=== PATIENT | female | born 1975 | race Caucasian/White ===

== ENCOUNTER → 2019-08-24 17:00 | Outpatient (CLI) | payer MEDICAID, SELFPAY ==
[2019-08-24 17:53] LABS: International Normalized Ratio 1.9; Prothrombin Time (Protime)PT. 21.9 SECONDS (11.7-14.9)
== END ==
PROVIDERS: PCP Family Medicine; Referring Provider Family Medicine; Visit Provider Family Medicine
DX: I82.4Y9 Acute embolism and thrombosis of unspecified deep veins of unspecified proximal lower extremity (principal)
CPT/HCPCS: 85610

== ENCOUNTER → 2019-11-07 | Outpatient (CLI) | payer MEDICAID, SELFPAY ==
[2019-11-07 16:19] LABS: International Normalized Ratio 2.7; Prothrombin Time (Protime)PT. 28.2 SECONDS (11.7-14.9)
== END | disposition home or self-care (01) ==
LOC: LABSPEC 15:57
PROVIDERS: PCP Family Medicine; Visit Provider Family Medicine
DX: I82.4Y9 Acute embolism and thrombosis of unspecified deep veins of unspecified proximal lower extremity (principal)
CPT/HCPCS: 85610